=== PATIENT | male | born 1980 | race Two or more races ===

== ENCOUNTER 2024-11-20 16:45 | Emergency (ER) | payer MEDICAID ==
[~2024-11-20] VITALS: Ht 175.3 cm; Wt 99.8 kg
[2024-11-20] MEDS ORDERED: KETOROLAC TROMETHAMINE INJ 30 MG/ML VIAL ONE (17:09)
[2024-11-20] MEDS: KETOROLAC TROMETHAMINE 15 MG/ML VIAL IV ONE (17:24)
[2024-11-20 17:26] LABS: BASOPHILS % (AUTO) 0.4 % (0.0-2.0); EOSINOPHILS % (AUTO) 0.1 % (0.0-6.0); HEMATOCRIT 42 % (39-51); HEMOGLOBIN 13.7 g/dL (13.5-17.5); LYMPHOCYTES # (AUTO) 0.4 K/uL (0.8-4.8); LYMPHOCYTES % (AUTO) 6.1 % (20.0-44.0); MEAN CORPUSCULAR HEMOGLOBIN 25 PG (26.0-33.0); MEAN CORPUSCULAR HGB CONC 33 g/dl (31.0-36.0); MEAN CORPUSCULAR VOLUME 76 fL (80-96); MONOCYTES # (AUTO) 0.6 K/uL (0.1-1.30); MONOCYTES % (AUTO) 10.2 % (2.0-12.0); NEUTROPHILS # (AUTO) 5.1 K/uL (1.8-8.9); NEUTROPHILS % (AUTO) 83.2 % (43.0-81.0); PLATELET COUNT (AUTO) 224 K/uL (150-450); RED CELL DISTRIBUTION WIDTH 13.7 % (11.5-15.0); WHITE BLOOD COUNT (AUTO) 6.1 K/uL (4.3-11.0)
[2024-11-20] MEDS: IV NS 0.9% 1,000 ML BAG IV ONE ×2 (17:36)
[2024-11-20 17:40] LABS: CALCIUM, SERUM 8.9 mg/dL (8.5-10.1); CREATININE 0.8 mg/dL (0.6-1.3); POTASSIUM 3.6 mmol/L (3.5-5.1)
[2024-11-20] MEDS ORDERED: CEFTRIAXONE 1GM BAG (ER ONLY) 50 ML IV ONE (18:11)
[2024-11-20 18:12] LABS: INR 1.04 (0.91-1.10); PARTIAL THROMBOPLASTIN TIME 33.1 SEC (24.3-34.3)
[2024-11-20] MEDS: CEFTRIAXONE 1GM BAG (ER ONLY) 50 ML IV ONE (18:14)
[2024-11-20 18:19] LABS: LACTIC ACID 0.5 mmol/L (0.4-2.0)
[2024-11-20 18:30] LABS: ALBUMIN 3.8 g/dL (3.4-5.0); BILIRUBIN,DIRECT 0.2 mg/dL (0.0-0.2); BILIRUBIN,TOTAL 0.8 mg/dL (0.2-1.0); TOTAL PROTEIN, SERUM 7.7 g/dL (6.4-8.2)
[2024-11-20 18:31] LABS: APPEARANCE,URINE CLEAR (CLEAR); BILIRUBIN,URINE 2+ (NEGATIVE); BLOOD, URINE 3+ Ery/uL (NEGATIVE); COLOR,URINE YELLOW (YELLOW); KETONES,URINE 2+ mg/dL (NEGATIVE); LEUKOCYTE ESTERASE ,URINE NEGATIVE (NEGATIVE); NITRITE, URINE NEGATIVE (NEGATIVE); PROTEIN,URINE 2+ mg/dl (NEGATIVE); UGLUCOSE NEGATIVE (NEGATIVE)
[2024-11-20 19:20] LABS: ADD URINE CULTURE YES; BACTERIA,URINE 1+ /HPF (None Seen); SQUAMOUS EPITHELIAL CELL,UR 0-2 /HPF (None Seen); WBC,URINE 0-2 /HPF (0-3)
[2024-11-20 20:15] LABS: ANISOCYTOSIS 1+; LYMPHOCYTES % (MANUAL) 16 % (16-48); MONOCYTES % (MANUAL) 11 % (0-11.0); NEUTROPHILS % (MANUAL) 73 (42-76); PLATELET ESTIMATE ADEQUATE
[2024-11-20] MEDS ORDERED: AZIT250T13 PO (20:35)
[2024-11-20] MEDS ORDERED: IBUP-1490 PO (20:35)
[2024-11-20] MEDS: AZITHROMYCIN 250 MG TABLET PO ONE (20:45)
[2024-11-20 20:52] VITALS: BP 132/89; TEMP 99.2; O2SAT 98
[2024-11-24] MEDS ORDERED: LEVO500T90 PO (12:18)
== END 2024-11-20 20:53 | disposition home or self-care (01) ==
LOC: ER 16:52
DX: J18.9 Pneumonia, unspecified organism (principal); R10.9 Unspecified abdominal pain; R31.9 Hematuria, unspecified; Z20.822 Contact with and (suspected) exposure to COVID-19
CPT/HCPCS: 99285; 74176; 96365; 71045; 96361; 93005; 84145; 85025; 80048; 87040 ×2; 87086; 83605; 80076; 81001; 36415; 85730; 85007; J1885; J7030; J0696

== ENCOUNTER 2024-11-22 20:56 | Inpatient (IN) | payer MEDICAID ==
[~2024-11-22] VITALS: Ht 175.3 cm; Wt 102.5 kg
[~2024-11-22 20:56] MED LIST: AZIT250T13 PO; IBUP-1490 PO
[2024-11-22] MEDS ORDERED: ACETAMINOPHEN ES 500 MG TABLET ONE (21:34)
[2024-11-22] MEDS: ACETAMINOPHEN ES 500 MG TABLET PO ONE (21:35)
[2024-11-22 23:20] LABS: BASOPHILS % (AUTO) 0.8 % (0.0-2.0); EOSINOPHILS % (AUTO) 1.1 % (0.0-6.0); HEMATOCRIT 39 % (39-51); HEMOGLOBIN 12.8 g/dL (13.5-17.5); LYMPHOCYTES # (AUTO) 0.8 K/uL (0.8-4.8); LYMPHOCYTES % (AUTO) 17.1 % (20.0-44.0); MEAN CORPUSCULAR HEMOGLOBIN 25 PG (26.0-33.0); MEAN CORPUSCULAR HGB CONC 33 g/dl (31.0-36.0); MEAN CORPUSCULAR VOLUME 76 fL (80-96); MONOCYTES # (AUTO) 0.8 K/uL (0.1-1.30); MONOCYTES % (AUTO) 16.6 % (2.0-12.0); NEUTROPHILS % (AUTO) 64.4 % (43.0-81.0); PLATELET COUNT (AUTO) 268 K/uL (150-450); RED BLOOD CELL COUNT(AUTO) 5.16 MIL/uL (4.5-6.0); RED CELL DISTRIBUTION WIDTH 13.9 % (11.5-15.0); WHITE BLOOD COUNT (AUTO) 4.6 K/uL (4.3-11.0)
[2024-11-22 23:28] LABS: CREATININE 0.8 mg/dL (0.6-1.3); POTASSIUM 3.6 mmol/L (3.5-5.1)
[2024-11-22 23:36] LABS: LACTIC ACID 0.5 mmol/L (0.4-2.0)
[2024-11-22 23:40] LABS: BILIRUBIN,TOTAL 0.5 mg/dL (0.2-1.0); TOTAL PROTEIN, SERUM 7.3 g/dL (6.4-8.2)
[2024-11-23] MEDS ORDERED: AZITHROMYCIN 500 MG in IV D5W 250 ML IV ONE
[2024-11-23] MEDS ORDERED: VANCOMYCIN 500 MG VIAL ONE (00:11)
[2024-11-23] MEDS ORDERED: VANCOMYCIN 1 GM /D5W 250 ML PB IV ONE (00:11)
[2024-11-23] MEDS: VANCOMYCIN HCL 1.25 GM in IV D5W 260 ML IV ONE (00:13)
[2024-11-23] MEDS: IV NS 0.9% 1,000 ML IV ONE (00:13)
[2024-11-23 00:44] LABS: NEUTROPHILS % (MANUAL) 61 (42-76)
[2024-11-23 00:45] LABS: ANISOCYTOSIS 1+; EOSINOPHILS % (MANUAL) 1 % (0-4); LYMPHOCYTES % (MANUAL) 25 % (16-48); MONOCYTES % (MANUAL) 13 % (0-11.0); PLATELET ESTIMATE ADEQUATE
[2024-11-23 00:51] LABS: ERYTHROCYTE SEDIMENTATION RATE 98 MM/HR (0-15)
[2024-11-23 01:25] VITALS: BP 124/77; TEMP 98; O2SAT 99
[2024-11-23] MEDS ORDERED: ONDANSETRON HCL/PF 4 MG/2 ML VIAL IVP PRN (01:30)
[2024-11-23] MEDS ORDERED: ZOLPIDEM TARTRATE 5 MG TABLET PO PRN (01:30)
[2024-11-23] MEDS ORDERED: MAG HYDROX/AL HYDROX/SIMETH 30 ML UDC PO PRN (01:30)
[2024-11-23] MEDS ORDERED: MAGNESIUM HYDROXIDE 30 ML UDC PO PRN (01:30)
[2024-11-23] MEDS ORDERED: Z GUARD REMEDY 4 OZ OINT TP PRN (01:30)
[2024-11-23] MEDS: ENOXAPARIN SODIUM 40 MG/0.4 ML DISP.SYRIN SQ SCH (01:50)
[2024-11-23] MEDS ORDERED: AZITHROMYCIN 500 MG VIAL ONE (02:17)
[2024-11-23] MEDS: AZITHROMYCIN 500 MG in IV D5W 250 ML IV SCH (02:32)
[2024-11-23 04:00] VITALS: BP 126/72; TEMP 97.9; O2SAT 98
[2024-11-23] MEDS: VANCOMYCIN HCL 1.25 GM in IV D5W 250 ML IV ONE (06:53)
[2024-11-23 08:05] VITALS: BP 131/73; TEMP 97.9; O2SAT 99
[2024-11-23] MEDS: PANTOPRAZOLE 40 MG TABLET.DR PO SCH (08:13)
[2024-11-23 12:05] VITALS: BP 138/82; TEMP 98.2; O2SAT 96
[2024-11-23] MEDS: VANCOMYCIN HCL 1.25 GM in IV D5W 250 ML IV SCH (13:24)
[2024-11-23] MEDS: ACETAMINOPHEN 325 MG TABLET PO PRN (13:34)
[2024-11-23 16:00] VITALS: BP 120/72; TEMP 98.6; O2SAT 98
[2024-11-23 20:00] VITALS: BP 121/65; TEMP 98.6; O2SAT 97
[2024-11-24] VITALS: BP 134/79; TEMP 98.9; O2SAT 98
[2024-11-24 04:00] VITALS: BP 121/70; TEMP 98.2; O2SAT 96
[2024-11-24 07:21] LABS: BASOPHILS # (AUTO) 0.1 K/uL (0.0-0.2); BASOPHILS % (AUTO) 1.9 % (0.0-2.0); EOSINOPHILS # (AUTO) 0.1 K/uL (0.0-0.7); EOSINOPHILS % (AUTO) 3.9 % (0.0-6.0); HEMATOCRIT 40 % (39-51); HEMOGLOBIN 13.3 g/dL (13.5-17.5); LYMPHOCYTES # (AUTO) 0.9 K/uL (0.8-4.8); LYMPHOCYTES % (AUTO) 27.3 % (20.0-44.0); MEAN CORPUSCULAR HEMOGLOBIN 25 PG (26.0-33.0); MEAN CORPUSCULAR HGB CONC 33 g/dl (31.0-36.0); MEAN CORPUSCULAR VOLUME 76 fL (80-96); MONOCYTES # (AUTO) 0.5 K/uL (0.1-1.30); MONOCYTES % (AUTO) 15.8 % (2.0-12.0); NEUTROPHILS # (AUTO) 1.6 K/uL (1.8-8.9); NEUTROPHILS % (AUTO) 51.1 % (43.0-81.0); PLATELET COUNT (AUTO) 329 K/uL (150-450); RED BLOOD CELL COUNT(AUTO) 5.24 MIL/uL (4.5-6.0); WHITE BLOOD COUNT (AUTO) 3.2 K/uL (4.3-11.0)
[2024-11-24 07:52] LABS: BILIRUBIN,DIRECT 0.1 mg/dL (0.0-0.2); BILIRUBIN,TOTAL 0.3 mg/dL (0.2-1.0); CALCIUM, SERUM 8.9 mg/dL (8.5-10.1); CREATININE 0.8 mg/dL (0.6-1.3); MAGNESIUM 2.3 mg/dL (1.8-2.4); PHOSPHORUS 3.6 mg/dL (2.5-4.9); TOTAL PROTEIN, SERUM 7.3 g/dL (6.4-8.2)
[2024-11-24 08:00] VITALS: BP 124/88; TEMP 97.9; O2SAT 96
[2024-11-24] MEDS ORDERED: LEVO500T90 PO (12:18)
[2024-11-24] MEDS: VANCOMYCIN 750 MG in IV D5W 250 ML IV SCH (13:32)
[2024-11-24] MEDS ORDERED: VANCOMYCIN 750 MG in IV D5W 250 ML IV SCH (15:00)
== END 2024-11-24 13:50 | disposition home or self-care (01) | DRG 139 ==
LOC: ER 20:57 → TELE1 11-23 00:15 → MEDSG1 11-24 08:03
PROVIDERS: ADMIT Nurse Practitioner Family; ATTEND Nurse Practitioner Family
DX: J15.9 Unspecified bacterial pneumonia (principal); E44.1 Mild protein-calorie malnutrition; E87.1 Hypo-osmolality and hyponatremia; E88.09 Other disorders of plasma-protein metabolism, not elsewhere classified; Z20.822 Contact with and (suspected) exposure to COVID-19; E66.9 Obesity, unspecified; Z68.33 Body mass index [BMI] 33.0-33.9, adult; R74.01 Elevation of levels of liver transaminase levels; R73.9 Hyperglycemia, unspecified; Z71.3 Dietary counseling and surveillance; F17.210 Nicotine dependence, cigarettes, uncomplicated
CPT/HCPCS: 36415; 71045-TC; 71250-TC; 80048-TC; 80053-TC; 80076-TC; 80202-TC; 83605-TC; 83735-TC; 83880; 84100-TC; 84484-TC; 85025-TC; 85652-TC; 87040-TC; A4223; G0378; J0456; J1650; J3370; J3371; J7050; J7060